=== PATIENT | male | born 1980 | race Caucasian/White ===

== ENCOUNTER 2019-09-09 14:55 | Outpatient (CLI) | payer BC ==
--- NOTE | 2019-09-09 16:05 | XRAY Report ---
PROCEDURE: Foot 3 View LT INDICATIONS: LEFT FOOT PAIN TECHNIQUE: 3 views of the foot were acquired. COMPARISON: None FINDINGS: Bones: No fractures or dislocations. No suspicious bony lesions. Soft tissues: No tibiotalar joint effusion. Achilles tendon appears normal. IMPRESSION: No acute finding or explanation for pain. Reviewed by: Sam Jeronimo MD on 09/09/2019 4:03 PM PDT Approved by: Sam Jeronimo MD on 09/09/2019 4:03 PM PDT Station ID: [id number]
== END 2019-09-09 14:56 | disposition home or self-care (01) ==
LOC: DI.S 14:55
PROVIDERS: ATTEND Nurse Practitioner Family
DX: M79.672 Pain in left foot (principal)

== ENCOUNTER 2019-09-09 15:05 | Outpatient (CLI) | payer BC ==
--- NOTE | 2019-09-09 16:05 | XRAY Report ---
Reason: LEFT ANKLE PAIN Procedure Date: 09/09/2019 Accession Number: [id number] / [id number] Procedure: XRS - Ankle 3 View LT CPT Code: Final Report FULL RESULT: PROCEDURE: Ankle 3 View LT INDICATIONS: LEFT ANKLE PAIN TECHNIQUE: 3 views of the ankle were acquired. COMPARISON: None FINDINGS: Bones: No fractures or dislocations. Ankle mortise is normally aligned. No suspicious bony lesions. Soft tissues: No tibiotalar joint effusion. Achilles tendon appears normal. IMPRESSION: No acute finding or explanation for pain. Reviewed by: Sam Jeronimo MD on 09/09/2019 4:04 PM PDT Approved by: Sam Jeronimo MD on 09/09/2019 4:04 PM PDT Station ID: [id number]
== END 2019-09-09 15:06 | disposition home or self-care (01) ==
LOC: DI.S 15:05
PROVIDERS: ATTEND Nurse Practitioner Family
DX: M79.672 Pain in left foot (principal)